=== PATIENT | female | born 1950 | race Caucasian/White ===

== ENCOUNTER 2019-02-25 10:03 | Emergency (ER) | payer MEDICARE, BC ==
[~2019-02-25] VITALS: Ht 165.1 cm; Wt 109.0 kg
[2019-02-25 10:17] VITALS: Ht 165.1 cm; Wt 109.0 kg
== END 2019-02-25 13:08 | disposition home or self-care (01) ==
LOC: FTE 10:03
DX: M25.562 Pain in left knee (principal)
CPT/HCPCS: 73562